=== PATIENT | male | born 1950 | race Caucasian/White ===

== ENCOUNTER → 2022-05-29 | Outpatient (CLI) | payer SELFPAY, OTHER ==
--- NOTE | 2022-05-29 07:42 | ECHOD_ITS ---
Reason For Study: Afib Procedure This was a 2D Doppler, Color Flow transthoracic echocardiogram. Exam performed in department. Left Ventricle Normal LV size. Left ventricular systolic function is normal. The estimated ejection fraction is 55 %. Diastolic function is indeterminate. No regional wall motion abnormalities noted. Right Ventricle Normal RV size. Normal systolic function. Atria The left atrium is mildly enlarged. Normal right atrium. No doppler evidence for ASD. Mitral Valve There is moderate to severe mitral annular calcification. Extension of the mitral annular calcification onto the posterior mitral valve leaflet. Anterior leaflet diffuse mitral valve thickening. Mild (1+) mitral valve insufficiency. Tricuspid Valve Normal tricuspid valve. Mild tricuspid valve insufficiency. Right ventricular systolic pressure estimated to be 23 mmHg. Aortic Valve Trisinus/trileaflet aortic valve. Moderate diffuse aortic valve calcification. Mild to moderate aortic stenosis. Trivial aortic valve insufficiency. Pulmonic Valve The pulmonic valve is not well visualized. Mild (1+) pulmonic valve insufficiency. Great Vessels Normal sized aortic root. Pericardium/Pleural Trivial pericardial effusion. There are no echocardiographic indications of cardiac tamponade. MMode/2D Measurements & Calculations LVIDd: 4.3 cm IVSd: 0.88 cm LVOT diam: 2.0 cm LVIDs: 2.8 cm LVPWd: 1.3 cm LVOT area: 3.2 cm2 RVDd: 5.1 cm FS: 35.1 % Ao root diam: 3.0 cm LAV(MOD-bp): 69.3 ml Aortic Valve Planimetry: 1.4 cm2 LA dimension: 4.1 cm LAV(MOD-bp) Indexed: 37.2 ml/m2 LAV(MOD-sp2): 67.1 ml LAV(MOD-sp4): 64.4 ml LA A4 area: 21.4 cm2 RA A4 area: 17.7 cm2 Doppler Measurements & Calculations MV E max gary: 85.7 cm/sec Ao V2 max: 174.1 cm/sec AI max gary: 357.1 cm/sec Ao max P.1 mmHg AI max P.0 mmHg Ao V2 mean: 119.2 cm/sec AI dec slope: 108.3 cm/sec2 Ao mean P.6 mmHg AI P1/2t: 965.5 msec Ao V2 VTI: 35.0 cm MCKENZIE(I,D): 1.6 cm2 MCKENZIE(V,D): 1.3 cm2 LV V1 max: 73.0 cm/sec MR max gary: 465.2 cm/sec SV(LVOT): 55.4 ml LV V1 max P.1 mmHg MR max P.6 mmHg LV V1 mean P.1 mmHg LV V1 mean: 48.7 cm/sec LV V1 VTI: 17.5 cm PA V2 max: 75.9 cm/sec TR max gary: 222.0 cm/sec TR max P.9 mmHg ECHO/Echo Complete Interpretation Summary Left ventricular systolic function is normal. The estimated ejection fraction is 55 %. The left atrium is mildly enlarged. There is moderate to severe mitral annular calcification. Extension of the mitral annular calcification onto the posterior mitral valve l eaflet. Anterior leaflet diffuse mitral valve thickening. Mild (1+) mitral valve insufficiency. Mild tricuspid valve insufficiency. Mild to moderate aortic stenosis. Trivial aortic valve insufficiency. Mild (1+) pulmonic valve insufficiency. Trivial pericardial effusion. There are no echocardiographic indications of cardiac tamponade. Right ventricular systolic pressure estimated to be 23 mmHg. Diastolic function is indeterminate. Ordering Physician: Kalin Grissom Referring Physician: Kalin Grissom Performed By: Giovani Lackey RCS
[2022-05-29 10:43] LABS: Thyroid Stim Hormone (TSH) 0.97 uIU/mL (0.358-3.74)
== END | disposition home or self-care (01) ==
LOC: CVS 07:41
PROVIDERS: PCP Nurse Practitioner Family; Referring Provider Internal Medicine Cardiovascular Disease; Visit Provider Internal Medicine Cardiovascular Disease
DX: I48.91 Unspecified atrial fibrillation (principal); E78.2 Mixed hyperlipidemia; I10 Essential (primary) hypertension
CPT/HCPCS: 36415; 84443; 93306

== ENCOUNTER → 2024-11-03 | Outpatient (CLI) | payer SELFPAY, OTHER ==
--- NOTE | 2024-11-03 08:36 | CDU_ITS ---
Reason For Study: Bruits Rt. Velocities/BP Lt. Velocities/BP Prox CCA 93.7/7.7 cm/sec. Prox CCA 132.1/17 cm/sec. Mid CCA 118.2/11.4 cm/sec. Mid CCA 110.1/17 cm/sec. Dist CCA 88.8/11.4 cm/sec. Dist CCA 70.7/12.4 cm/sec. Prox ICA 59.3/9 cm/sec. Prox ICA 45.6/12.6 cm/sec. Mid ICA 82.6/17.6 cm/sec. Mid ICA 86.3/24.8 cm/sec. Dist ICA 113.3/22.5 cm/sec. Dist ICA 73.1/18.7 cm/sec. Rt. ICA/CCA = 0.96. Lt. ICA/CCA = 0.78. Prox ECA 87.6/2.8 cm/sec. Prox ECA 115.6/4.2 cm/sec. Rt. Vert. 65.4/9 cm/sec. Lt. Vert. 50/11.6 cm/sec. Right Extracranial There is intimal thickening but no significant atherosclerotic plaque noted in the right common carotid artery. There is heterogeneous, irregular atherosclerotic plaque noted in the right internal carotid artery. There is intimal thickening but no significant atherosclerotic plaque noted in the right external carotid artery. Antegrade flow is noted in the right vertebral artery. Left Extracranial There is homogeneous, smooth atherosclerotic plaque noted in the left common carotid artery. There is homogeneous, smooth atherosclerotic plaque noted in the left internal carotid artery. There is intimal thickening but no significant atherosclerotic plaque noted in the left external carotid artery. Antegrade flow is noted in the left vertebral artery. Procedure This is a Carotid Duplex examination using B-mode, color flow and specral Doppler. Carotid Duplex [id number]. Exam performed in department. VL/Carotid Duplex Ultrasound Interpretation Summary Mild (<50%) stenosis right extracranial internal carotid. Mild (<50%) stenosis left extracranial internal carotid. Patent and antegrade vertebrals bilaterally. Ordering Physician: Karla Mendosa Performed By: Torri Umanzor RVT
--- NOTE | 2024-11-03 08:36 | ECHOD_ITS ---
Reason For Study: MURMUR Procedure This was a 2D Doppler, Color Flow transthoracic echocardiogram. Exam performed in department. Left Ventricle Normal LV size. Left ventricular systolic function is normal. The left ventricular ejection fraction is 65 %. No regional wall motion abnormalities noted. Right Ventricle Normal RV size. Normal systolic function. Atria Normal left atrium. Normal right atrium. Mitral Valve There is mild mitral annular calcification. Mild (1+) eccentric mitral valve insufficiency. Tricuspid Valve Normal tricuspid valve. Mild (1+) tricuspid valve insufficiency. Pulmonary artery systolic pressure is 30 mmHg. Aortic Valve Trisinus/trileaflet aortic valve. Mild focal aortic valve calcification. Peak aortic valve gradient 40 mmHg. Mean aortic valve gradient 24 mmHg. Mild to moderate aortic stenosis. Mild (1+) aortic valve insufficiency. MMode/2D Measurements & Calculations LVIDd: 4.7 cm IVSd: 1.4 cm LVOT diam: 2.2 cm LVIDs: 2.4 cm LVPWd: 1.1 cm RVDd: 4.9 cm FS: 49.6 % LVOT area: 3.8 cm2 asc Aorta Diam: 3.5 cm LAV(MOD-bp): 70.3 ml LVAd ap4: 27.2 cm2 LAV(MOD-bp) Indexed: 38.3 ml/m2 LVLd ap4: 7.9 cm LAV(MOD-sp2): 97.2 ml EDV(MOD-sp4): 74.6 ml LAV(MOD-sp4): 49.2 ml EDV(sp4-el): 79.3 ml LVAs ap4: 14.3 cm2 LVLs ap4: 6.9 cm ESV(MOD-sp4): 25.0 ml ESV(sp4-el): 25.4 ml EF(MOD-sp4): 66.5 % EF(sp4-el): 67.9 % LVAd ap2: 22.4 cm2 SV(MOD-sp4): 49.6 ml SV(MOD-sp2): 37.0 ml LVLd ap2: 7.2 cm SI(MOD-sp4): 27.1 ml/m2 SI(MOD-sp2): 20.2 ml/m2 EDV(MOD-sp2): 57.9 ml EDV(sp2-el): 58.9 ml LVAs ap2: 12.3 cm2 LVLs ap2: 6.3 cm ESV(MOD-sp2): 20.9 ml ESV(sp2-el): 20.3 ml EF(MOD-sp2): 63.9 % SV(sp4-el): 53.8 ml Ao sinus diam: 3.[address] Junction: 2.6 cm LA A4 area: 19.6 cm2 LA dimension(2D): 4.4 cm RA A4 area: 17.8 cm2 TAPSE: 1.8 cm Time Measurements MV dec time: 0.28 sec Doppler Measurements & Calculations MV E max ángel: 81.0 cm/sec Lat Peak E' Ángel: 8.3 cm/sec Med Peak E' Ángel: 8.8 cm/sec MV A max ángel: 85.4 cm/sec E/E' lat: 9.7 E/E' med: 9.2 MV E/A: 0.95 MV dec slope: 290.1 cm/sec2 Ao V2 max: 314.5 cm/sec AI max ángel: 417.4 cm/sec Ao max P.7 mmHg AI max P.7 mmHg Ao V2 mean: 232.9 cm/sec AI dec slope: 248.9 cm/sec2 Ao mean P.7 mmHg AI P1/2t: 491.1 msec Ao V2 VTI: 82.0 cm AV (velocity ratio): 0.33 MCKENZIE(I,D): 1.2 cm2 MCKENZIE(V,D): 1.3 cm2 LV V1 max: 103.4 cm/sec SV(LVOT): 102.2 ml PA V2 max: 99.8 cm/sec LV V1 max P.3 mmHg LV V1 mean P.7 mmHg LV V1 mean: 78.2 cm/sec LV V1 VTI: 26.8 cm TR max ángel: 262.3 cm/sec TR max P.5 mmHg ECHO/Echo Complete Interpretation Summary Normal LV size. Left ventricular systolic function is normal. The left ventricular ejection fraction is 65 %. Mild focal aortic valve calcification. Mean aortic valve gradient 24 mmHg. Mild (1+) aortic valve insufficiency. Mild to moderate aortic stenosis. Ordering Physician: Karla Mendosa Referring Physician: Karla Mendosa Performed By: Lety Roberson RDCS
== END | disposition home or self-care (01) ==
PROVIDERS: Referring Provider Physician Assistant Medical; Visit Provider Physician Assistant Medical
DX: R09.89 Other specified symptoms and signs involving the circulatory and respiratory systems (principal); I35.0 Nonrheumatic aortic (valve) stenosis
CPT/HCPCS: 93306; 93880